=== PATIENT | male | born 1980 | race Caucasian/White ===

== ENCOUNTER → 2018-01-12 | Emergency (ER) | payer OTHER ==
[~2018-01-12] VITALS: Ht 177.8 cm; Wt 86.2 kg
== END | disposition home or self-care (01) ==
LOC: ER 20:18
DX: S82.131A Displaced fracture of medial condyle of right tibia, initial encounter for closed fracture (principal); W18.39XA Other fall on same level, initial encounter; Y93.89 Activity, other specified; Y92.89 Other specified places as the place of occurrence of the external cause; Y99.8 Other external cause status